=== PATIENT | female | born 1995 | race Caucasian/White ===

== ENCOUNTER 2017-10-18 15:41 | Emergency (ER) | payer BC ==
[~2017-10-18] VITALS: Ht 167.6 cm; Wt 77.3 kg
[2017-10-18 15:48] VITALS: TEMP 98.7
[2017-10-18 17:11] LABS: BASO % 0.4 % (0.0-2.0); EOS # 0.2 (0.0-0.7); EOS % 2.2 % (0-4.0); GRAN % 61.9 % (42.2-75.2); HEMATOCRIT 37.4 % (35.0-45.0); HEMOGLOBIN 12.1 g/dl (12.0-15.0); LYMPH # 2.2 (1.2-3.4); LYMPH % 27.1 % (20.0-51.0); MEAN CELL VOLUME 90 fl (80.0-95.0); MEAN CORPUSCULAR HEMOGLOBIN 29 pg (26.0-32.0); MEAN CORPUSCULAR HGB CONC 32 g/dl (33.0-37.0); MEAN PLATELET VOLUME 11.5 fl (7.4-10.4); MONO # 0.6 (0.1-0.6); MONO % 7.9 % (1.7-9.3); PLATELET COUNT 214 K/mm3 (130-400); RED BLOOD COUNT 4.14 M/mm3 (4.10-5.30); REDCELL DISTRIBUTION WIDTH-CV 12.9 % (11.5-14.5)
[2017-10-18 17:24] LABS: ALBUMIN 4.1 gm/dL (3.5-5.0); BILIRUBIN,TOTAL 0.3 mg/dL (0.0-1.0); CALCIUM 9.4 mg/dL (8.4-10.2); CREATININE, serum 0.7 mg/dL (0.52-1.25); POTASSIUM 4.2 mmol/L (3.4-5.0); TOTAL PROTEIN 7.5 gm/dL (6.4-8.2)
[2017-10-18] MEDS ORDERED: LYRICA 150MG C150 MG PO (17:42)
[2017-10-18] MEDS ORDERED: PROVIGIL 100MG100 MG PO (17:43)
[2017-10-18] MEDS ORDERED: PROAMATINE10 MG PO (17:43)
[2017-10-18] MEDS ORDERED: ALLEGRA ALLERG180 MG PO (17:43)
[2017-10-18] MEDS ORDERED: WOMEN'S DAILY1 TAB PO (17:43)
[2017-10-18] MEDS ORDERED: RITALIN10 MG PO (17:44)
[2017-10-18] MEDS ORDERED: FLEXERIL 1010 MG/TAB PO (17:45)
[2017-10-18] MEDS ORDERED: ULTRAM 50MG TAB50 MG PO (17:45)
[2017-10-18] MEDS ORDERED: TYLENOL W/COD1 UDTAB PO (17:46)
[2017-10-18] MEDS ORDERED: ALEVE 220MG220 MG PO (17:46)
[2017-10-18] MEDS ORDERED: EXCEDRIN1 TAB PO (17:46)
[2017-10-18 18:45] VITALS: BP 123/76; PULSE 58
== END 2017-10-18 18:45 | disposition home or self-care (01) ==
LOC: COL.ER 15:41
PROVIDERS: Emergency Medicine
DX: R55 Syncope and collapse (principal); M79.7 Fibromyalgia; F41.9 Anxiety disorder, unspecified; Z90.89 Acquired absence of other organs; Z98.890 Other specified postprocedural states
CPT/HCPCS: J1885; J2060; J7030

== ENCOUNTER 2017-10-24 22:33 | Emergency (ER) | payer BC ==
[~2017-10-24] VITALS: Ht 167.6 cm; Wt 75.0 kg
[~2017-10-24 22:33] MED LIST: ALEVE 220MG220 MG PO; ALLEGRA ALLERG180 MG PO; EXCEDRIN1 TAB PO; FLEXERIL 1010 MG/TAB PO; LYRICA 150MG C150 MG PO; PROAMATINE10 MG PO; PROVIGIL 100MG100 MG PO; RITALIN10 MG PO; TYLENOL W/COD1 UDTAB PO; ULTRAM 50MG TAB50 MG PO; WOMEN'S DAILY1 TAB PO
[2017-10-24 22:37] VITALS: TEMP 97
[2017-10-24 23:57] LABS: BASO % 0.2 % (0.0-2.0); EOS % 0.1 % (0-4.0); GRAN # 14.3 (1.4-6.5); GRAN % 79.1 % (42.2-75.2); HEMATOCRIT 37.3 % (35.0-45.0); HEMOGLOBIN 12.2 g/dl (12.0-15.0); LYMPH # 2.5 (1.2-3.4); LYMPH % 13.8 % (20.0-51.0); MEAN CELL VOLUME 90 fl (80.0-95.0); MEAN CORPUSCULAR HEMOGLOBIN 29 pg (26.0-32.0); MEAN CORPUSCULAR HGB CONC 33 g/dl (33.0-37.0); MEAN PLATELET VOLUME 12.3 fl (7.4-10.4); MONO # 1.1 (0.1-0.6); MONO % 6.2 % (1.7-9.3); PLATELET COUNT 215 K/mm3 (130-400); RED BLOOD COUNT 4.16 M/mm3 (4.10-5.30); REDCELL DISTRIBUTION WIDTH-CV 12.9 % (11.5-14.5)
[2017-10-25] LABS: ANION GAP 14 mmol/L (7-16); BLOOD UREA NITROGEN 13 mg/dL (7-17); CALCIUM 9.7 mg/dL (8.4-10.2); CARBON DIOXIDE 23 mmol/L (22-30); CHLORIDE 103 mmol/L (98-107); CREATININE, serum 0.75 mg/dL (0.52-1.25); GLUCOSE 86 mg/dL (74-106); SODIUM 140 mmol/L (137-145)
[2017-10-25] MEDS ORDERED: PREVIFEM 35 MCG1 TA2 PO (00:01)
[2017-10-25 00:26] LABS: TROPONIN-I < 0.012 ng/mL (0.000-0.034)
[2017-10-25 00:51] LABS: COLLECTION METHOD CLEAN CATCH
[2017-10-25 01:01] LABS: AMORPHOUS CRYSTAL Present /uL; MUCOUS Present /lpf; PH 7 (5-8); SQUAMOUS EPITHELIAL 0-2 /hpf; URINE APPEARANCE Hazy; URINE BACTERIA None Seen /hpf; URINE BILIRUBIN Negative (NEGATIVE); URINE BLOOD Negative (NEGATIVE); URINE COLOR Yellow; URINE GLUCOSE Negative (NEGATIVE); URINE KETONE 1+ (NEGATIVE); URINE LEUKOCYTE ESTERASE Negative (NEGATIVE); URINE NITRATE Negative (NEGATIVE); URINE PROTEIN(semi-quant) 1+ (NEGATIVE); URINE RBC 0-2 /hpf; URINE UROBILINOGEN Negative (NEGATIVE)
[2017-10-25 01:47] VITALS: BP 113/68; PULSE 85
== END 2017-10-25 01:49 | disposition home or self-care (01) ==
LOC: COL.ER 22:33
PROVIDERS: Emergency Medicine
DX: I49.8 Other specified cardiac arrhythmias (principal); R07.89 Other chest pain; M79.7 Fibromyalgia
CPT/HCPCS: J0780; J1885; J7030

== ENCOUNTER 2017-12-11 02:55 | Emergency (ER) | payer BC ==
[~2017-12-11] VITALS: Ht 167.6 cm; Wt 77.3 kg
[~2017-12-11 02:55] MED LIST changes: +PREVIFEM 35 MCG1 TA2 PO
[2017-12-11 02:58] VITALS: BP 145/70; TEMP 97.8
[2017-12-11 04:16] VITALS: PULSE 62
== END 2017-12-11 04:16 | disposition home or self-care (01) ==
LOC: COL.ER 02:55
DX: S71.112A Laceration without foreign body, left thigh, initial encounter (principal); M79.7 Fibromyalgia; Z23 Encounter for immunization; W26.0XXA Contact with knife, initial encounter; Y92.009 Unspecified place in unspecified non-institutional (private) residence as the place of occurrence of the external cause

== ENCOUNTER 2018-01-22 14:30 | Emergency (ER) | payer BC ==
[~2018-01-22] VITALS: Ht 167.6 cm; Wt 77.3 kg
[2018-01-22 14:35] VITALS: TEMP 97.7
[2018-01-22 16:11] LABS: BASO # 0.1 (0.0-0.2); BASO % 0.6 % (0.0-2.0); EOS # 0.2 (0.0-0.7); GRAN # 4.4 (1.4-6.5); GRAN % 53.9 % (42.2-75.2); HEMOGLOBIN 11.4 g/dl (12.0-15.0); LYMPH # 2.4 (1.2-3.4); LYMPH % 29.5 % (20.0-51.0); MEAN CELL VOLUME 83 fl (80.0-95.0); MEAN CORPUSCULAR HEMOGLOBIN 27 pg (26.0-32.0); MEAN CORPUSCULAR HGB CONC 32 g/dl (33.0-37.0); MEAN PLATELET VOLUME 11.9 fl (7.4-10.4); MONO % 12.8 % (1.7-9.3); PLATELET COUNT 247 K/mm3 (130-400); RED BLOOD COUNT 4.31 M/mm3 (4.10-5.30); REDCELL DISTRIBUTION WIDTH-CV 15.5 % (11.5-14.5)
[2018-01-22 16:14] LABS: HEMATOCRIT 35.8 % (35.0-45.0)
[2018-01-22 16:20] LABS: ALANINE AMINOTRANSFERASE 43 U/L (9-52); ALBUMIN 4.5 gm/dL (3.5-5.0); ALKALINE PHOSPHATASE 79 U/L (50-136); ANION GAP 6 mmol/L (7-16); AST,SGOT 32 U/L (15-37); BILIRUBIN,TOTAL 0.2 mg/dL (0.0-1.0); BLOOD UREA NITROGEN 11 mg/dL (7-17); CALCIUM 9.9 mg/dL (8.4-10.2); CARBON DIOXIDE 28 mmol/L (22-30); CHLORIDE 107 mmol/L (98-107); CREATININE, serum 0.81 mg/dL (0.52-1.25); GLUCOSE 106 mg/dL (74-106); POTASSIUM 4.1 mmol/L (3.4-5.0); SODIUM 142 mmol/L (137-145); TOTAL PROTEIN 7.8 gm/dL (6.4-8.2)
[2018-01-22 16:27] LABS: C-REACTIVE PROTEIN < 0.5 mg/dL (0.0-0.9)
[2018-01-22 17:43] VITALS: BP 127/77; PULSE 72
[2018-01-24] MEDS ORDERED: NEURONTIN300 MG/CAP PO (15:00)
[2018-01-24] MEDS ORDERED: EFFEXOR 75M75 MG/TAB PO (15:00)
[2018-01-24] MEDS ORDERED: ULTRAM 50MG TAB50 MG PO (15:01)
== END 2018-01-22 17:45 | disposition home or self-care (01) ==
LOC: COL.ER 14:30
PROVIDERS: Physician Assistant
DX: R51 Headache (principal); Z90.89 Acquired absence of other organs; Z86.69 Personal history of other diseases of the nervous system and sense organs
CPT/HCPCS: J1200; J1885; J2765; J7030

== ENCOUNTER 2018-11-12 12:12 | Emergency (ER) | payer BC ==
[~2018-11-12] VITALS: Ht 167.6 cm; Wt 77.1 kg
[~2018-11-12 12:12] MED LIST changes: +EFFEXOR 75M75 MG/TAB PO; +NEURONTIN300 MG/CAP PO
[2018-11-12 12:15] VITALS: BP 122/76; TEMP 99.1
[2018-11-12 14:03] VITALS: PULSE 76
== END 2018-11-12 14:03 | disposition home or self-care (01) ==
LOC: COL.ER 12:12
PROVIDERS: Physician Assistant
DX: G43.909 Migraine, unspecified, not intractable, without status migrainosus (principal)
CPT/HCPCS: J1200; J1885; J2765; J7030

== ENCOUNTER 2019-01-21 11:26 | Emergency (ER) | payer BC ==
[~2019-01-21] VITALS: Ht 170.2 cm; Wt 78.5 kg
[2019-01-21 11:49] VITALS: TEMP 98.3
[2019-01-21 12:38] LABS: COLLECTION METHOD CLEAN CATCH
[2019-01-21 12:43] LABS: BASO % 0.5 % (0.0-2.0); EOS # 0.2 (0.0-0.7); EOS % 2.5 % (0-4.0); GRAN # 4.2 (1.4-6.5); GRAN % 66.4 % (42.2-75.2); HEMATOCRIT 43.4 % (37.0-47.0); HEMOGLOBIN 14.2 g/dl (12.5-16.0); LYMPH # 1.3 (1.2-3.4); LYMPH % 20.3 % (20.0-51.0); MEAN CELL VOLUME 92 fl (80.0-100.0); MEAN CORPUSCULAR HEMOGLOBIN 30 pg (27.0-31.0); MEAN CORPUSCULAR HGB CONC 33 g/dl (33.0-37.0); MEAN PLATELET VOLUME 11.2 fl (7.4-10.4); MONO # 0.6 (0.1-0.6); PLATELET COUNT 253 K/mm3 (130-400); REDCELL DISTRIBUTION WIDTH-CV 12.3 % (11.5-14.5)
[2019-01-21 12:48] LABS: MUCOUS Present /lpf; PH 5 (5-8); SQUAMOUS EPITHELIAL 0-2 /hpf; URINE APPEARANCE Clear; URINE BACTERIA None Seen /hpf; URINE BILIRUBIN Negative (NEGATIVE); URINE BLOOD Negative (NEGATIVE); URINE COLOR Amber; URINE GLUCOSE Negative (NEGATIVE); URINE KETONE Negative (NEGATIVE); URINE LEUKOCYTE ESTERASE Negative (NEGATIVE); URINE NITRATE Negative (NEGATIVE); URINE PROTEIN(semi-quant) Negative (NEGATIVE); URINE RBC 0-2 /hpf; URINE UROBILINOGEN Negative (NEGATIVE)
[2019-01-21] MEDS ORDERED: PRISTIQ 50 MG T50 MG PO (12:49)
[2019-01-21 12:56] LABS: ALBUMIN 4.6 gm/dL (3.5-5.0); BILIRUBIN,TOTAL 0.1 mg/dL (0.0-1.0); C-REACTIVE PROTEIN 2.7 mg/dL (0.0-0.9); CALCIUM 9.6 mg/dL (8.4-10.2); CREATININE, serum 0.74 (0.52-1.25); TOTAL PROTEIN 8.1 gm/dL (6.4-8.2)
[2019-01-21] MEDS ORDERED: ZOFRAN ODT4 MG PO (13:51)
[2019-01-21 14:45] VITALS: BP 119/74; PULSE 70
== END 2019-01-21 14:44 | disposition home or self-care (01) ==
LOC: COL.ER 11:26
PROVIDERS: Physician Assistant
DX: R11.2 Nausea with vomiting, unspecified (principal); R10.30 Lower abdominal pain, unspecified; M79.7 Fibromyalgia; G43.909 Migraine, unspecified, not intractable, without status migrainosus
CPT/HCPCS: J1885; J2405; J7030